=== PATIENT | female | born 1970 | race Caucasian/White ===

== ENCOUNTER 2018-05-25 18:05 | Emergency (ER) | payer OTHER ==
[2018-05-25] MEDS ORDERED: NICOTINE 21MG/24HR PATCH TRANSDERM STA (18:35)
[2018-05-25] MEDS ORDERED: clonazePAM 1 MG TAB PO STA (18:35)
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
[2018-05-25 18:55] LABS: Amphetamine Screen,Urine Not Detected (NotDetected); Barbiturate Screen,Urine Not Detected (NotDetected); Benzodiazepines Screen,Urine Not Detected (NotDetected); Cocaine Screen,Urine Not Detected (NotDetected); Methadone Screen, Urine Not Detected (NotDetected); Opiate Screen,Urine Not Detected (NotDetected); Oxycodone Screen, Urine Not Detected (NotDetected); Phencyclidine Screen,Urine Not Detected (NotDetected); Tricyclic Antidepressant,Urine Not Detected (NotDetected); Urn Cannabinoid Scrn Not Detected (NotDetected)
[2018-05-25] MEDS ORDERED: ZIPRASIDONE 20 MG VIAL IM STA (19:52)
[2018-05-25] MEDS ORDERED: LORazepam 2 MG/ML INJ IM STA (19:55)
[2018-05-26] MEDS ORDERED: LORazepam 1 MG TAB PO STA ×3 (03:37→14:55)
[2018-05-26 05:15] LABS: ALT 60 U/L (9-52); AST 43 U/L (14-36); Albumin 4.2 g/dL (3.5-5.0); Alcohol <10 mg/dL; Alkaline Phosphatase 55 U/L (38-126); Anion Gap 8 mmol/L; Blood Urea Nitrogen 11 mg/dL (7-17); Calcium 9.2 mg/dL (8.4-10.2); Carbon Dioxide 25 mmol/L (22-30); Chloride 106 mmol/L (98-107); Glucose 100 mg/dL (74-99); Sodium 139 mmol/L (137-145); Total Bilirubin 0.7 mg/dL (0.2-1.3); Total Protein 6.8 g/dL (6.3-8.2)
[2018-05-26 05:42] LABS: Basophils % (A) 0 %; Eosinophils # (A) 0.1 k/uL (0-0.7); Eosinophils % (A) 4 %; HCT 44.7 % (34.0-46.0); HGB 14.6 gm/dL (11.4-16.0); Lymphocytes % (A) 33 %; MCHC 32.7 g/dL (31.0-37.0); MCV 100.8 fL (80.0-100.0); Mean Platelet Volume 6.4; Monocytes # (A) 0.3 k/uL (0-1.0); Monocytes % (A) 9 %; Neutrophils # (A) 1.6 k/uL (1.3-7.7); Neutrophils % (A) 52 %; Platelet Count 231 k/uL (150-450); RBC 4.43 m/uL (3.80-5.40); RDW 12.6 % (11.5-15.5); WBC 3.2 k/uL (3.8-10.6)
[2018-05-26 08:53] LABS: Appearance,Urine Clear (Clear); Bilirubin,Urine Negative (Negative); Blood,Urine Negative (Negative); Color,Urine Light Yellow; Glucose,Urine (UA) Negative (Negative); Ketones,Urine Negative (Negative); Leukocyte Esterase,Urine Negative (Negative); Nitrite,Urine Negative (Negative); Protein,Urine Negative (Negative); Specific Gravity,Urine 1.003 (1.001-1.035); Urobilinogen,Urine <2.0 mg/dL (<2.0)
[2018-05-26 13:11] VITALS: TEMP 98.1
[2018-05-26 15:01] VITALS: BP 129/97; PULSE 74; RESP 16
--- NOTE | 2018-05-27 06:12 | CDI ---
Documentation Clarification OP Dear Daisy RODRIGUEZ, Please provide clinical impression Thank you, Vivek Sanchez [employer] If you have any questions, please contact [employer] at [phone] Clinical impression documented. MTDD
== END 2018-05-26 15:00 | disposition other institution (70) ==
LOC: EC 18:05
DX: R45.851 Suicidal ideations (principal); F32.9 Major depressive disorder, single episode, unspecified; F41.9 Anxiety disorder, unspecified; F17.200 Nicotine dependence, unspecified, uncomplicated; Z79.899 Other long term (current) drug therapy
CPT/HCPCS: 82075; 36415; 80053; 84443; 85025; 81003; 81025; 80306; 99285; 96372 ×2; G0480; S4990; J2060; J3486; 80320

== ENCOUNTER 2020-09-29 15:46 | Observation (INO) | payer OTHER ==
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
[2020-09-29 16:06] LABS: Basophils % (A) 0 %; Eosinophils # (A) 0.2 k/uL (0-0.7); Eosinophils % (A) 2 %; HCT 40.5 % (34.0-46.0); HGB 13.9 gm/dL (11.4-16.0); Lymphocytes # (A) 1.3 k/uL (1.0-4.8); Lymphocytes % (A) 12 %; MCHC 34.2 g/dL (31.0-37.0); MCV 93.6 fL (80.0-100.0); Mean Platelet Volume 6.7; Monocytes # (A) 0.4 k/uL (0-1.0); Monocytes % (A) 4 %; Neutrophils # (A) 8.6 k/uL (1.3-7.7); Neutrophils % (A) 81 %; Platelet Count 265 k/uL (150-450); RBC 4.33 m/uL (3.80-5.40); WBC 10.6 k/uL (3.8-10.6)
[2020-09-29 16:11] LABS: ABG Base Excess -9.2 mmol/L; ABG HCO3 17 mmol/L (21-25); ABG PCO2 32 mmHg (35-45); ABG PH 7.33 (7.35-7.45); ABG PO2 267 mmHg (83-108); ABG TCO2 18 mmol/L (19-24); Allen Test Performed? Yes
[2020-09-29 16:15] LABS: Partial Thromboplastin Time 22.8 sec (22.0-30.0); Prothrombin Time 10.3 sec (9.0-12.0)
[2020-09-29 16:21] LABS: Appearance,Urine Cloudy (Clear); Bacteria,Urine Rare /hpf; Bilirubin,Urine Negative (Negative); Blood,Urine Negative (Negative); Color,Urine Dark Yellow; Glucose,Urine (UA) 2+ (Negative); Hyaline Casts,Urine 37 /lpf (0-2); Ketones,Urine Trace (Negative); Leukocyte Esterase,Urine Negative (Negative); Mucus,Urine Many /hpf; Nitrite,Urine Negative (Negative); PH, Urine 5.5 (5.0-8.0); Protein,Urine 1+ (Negative); RBC,Urine <1 /hpf (0-5); Specific Gravity,Urine 1.029 (1.001-1.035); Squamous Epithelial Cell,Urine 6 /hpf (0-4); WBC,Urine 4 /hpf (0-5)
[2020-09-29 16:22] LABS: ALT 18 U/L (4-34); AST 24 U/L (14-36); African American GFR (CKD) >90 (>60 ml/min/1.73 sqM); Albumin 4.5 g/dL (3.5-5.0); Alkaline Phosphatase 64 U/L (38-126); Anion Gap 16 mmol/L; Blood Urea Nitrogen 9 mg/dL (7-17); Calcium 9.2 mg/dL (8.4-10.2); Carbon Dioxide 15 mmol/L (22-30); Chloride 108 mmol/L (98-107); Glucose 232 mg/dL (74-99); Non-African American GFR(CKD) >90 (>60 ml/min/1.73 sqM); Potassium 3.3 mmol/L (3.5-5.1); Sodium 139 mmol/L (137-145); Total Bilirubin 0.3 mg/dL (0.2-1.3); Total Protein 6.8 g/dL (6.3-8.2)
[2020-09-29 16:27] LABS: Alcohol 107 mg/dL
[2020-09-29 16:29] LABS: Amphetamine Screen,Urine Detected (NotDetected); Barbiturate Screen,Urine Not Detected (NotDetected); Benzodiazepines Screen,Urine Detected (NotDetected); Cocaine Screen,Urine Not Detected (NotDetected); Methadone Screen, Urine Not Detected (NotDetected); Opiate Screen,Urine Not Detected (NotDetected); Oxycodone Screen, Urine Not Detected (NotDetected); Phencyclidine Screen,Urine Not Detected (NotDetected); Tricyclic Antidepressant,Urine Detected (NotDetected); Urn Cannabinoid Scrn Not Detected (NotDetected)
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
[2020-09-29] MEDS ORDERED: NALOXONE 0.4 MG/ML 1 ML VIAL IV PRN (19:26)
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
[2020-09-30 02:28] LABS: Glucose,Whole Blood 106 mg/dL (75-99)
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
[2020-09-30] MEDS: HEPARIN SODIUM,PORCINE/PF 5,000 UNIT/0.5 ML SYRINGE SQ SCH ×2 (08:57→16:36)
[2020-09-30] MEDS: cloNIDine HCL 0.1 MG TAB PO SCH ×2 (08:58→21:15)
[2020-09-30] MEDS: ALPRAZolam 0.25 MG TAB PO PRN ×2 (08:58→17:34)
[2020-09-30] MEDS: QUEtiapine 100 MG TAB PO SCH (08:58)
[2020-09-30] MEDS ORDERED: LEVOTHYROXINE 50 MCG TAB PO SCH (09:00)
[2020-09-30] MEDS ORDERED: FAMOTIDINE 20 MG/2 ML VIAL IV SCH (09:00)
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
[2020-09-30] MEDS ORDERED: NICOTINE 14MG/24HR PATCH TRANSDERM STA (14:25)
[2020-09-30] MEDS ORDERED: ACETAMINOPHEN TAB 500 MG TAB PO PRN (14:54)
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
[2020-09-30] MEDS: ALBUTEROL HFA INHALER INHALATION SCH (20:46)
[2020-09-30 21:12] LABS: Glucose,Whole Blood 147 mg/dL (75-99)
[2020-09-30] MEDS: FAMOTIDINE 20 MG TAB PO SCH (21:15)
[2020-10-01] MEDS: HEPARIN SODIUM,PORCINE/PF 5,000 UNIT/0.5 ML SYRINGE SQ SCH ×3 (00:07→15:55)
[2020-10-01] MEDS: ALPRAZolam 0.25 MG TAB PO PRN ×3 (02:34→19:33)
[2020-10-01 06:39] LABS: Basophils % (A) 0 %; Eosinophils # (A) 0.3 k/uL (0-0.7); Eosinophils % (A) 5 %; HCT 39.7 % (34.0-46.0); HGB 13.3 gm/dL (11.4-16.0); Lymphocytes # (A) 1.8 k/uL (1.0-4.8); Lymphocytes % (A) 33 %; MCH 31.5 pg (25.0-35.0); MCHC 33.5 g/dL (31.0-37.0); Mean Platelet Volume 6.8; Monocytes # (A) 0.3 k/uL (0-1.0); Monocytes % (A) 5 %; Neutrophils % (A) 56 %; Platelet Count 255 k/uL (150-450); RBC 4.23 m/uL (3.80-5.40); WBC 5.4 k/uL (3.8-10.6)
[2020-10-01] MEDS: ALBUTEROL HFA INHALER INHALATION SCH ×3 (07:55→20:39)
[2020-10-01] MEDS: cloNIDine HCL 0.1 MG TAB PO SCH ×2 (08:12→21:30)
[2020-10-01] MEDS: QUEtiapine 100 MG TAB PO SCH (08:12)
[2020-10-01] MEDS: PANTOPRAZOLE 40 MG TABLET PO SCH (08:12)
[2020-10-01] MEDS: FAMOTIDINE 20 MG TAB PO SCH ×2 (08:12→21:30)
[2020-10-01] MEDS: SERTRALINE 100 MG TAB PO SCH (08:12)
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
[2020-10-01 08:52] LABS: African American GFR (CKD) 99.6 (60.0-200.0); BUN/Creat Ratio 18.75 Ratio (12.00-20.00); Calcium 9.1 mg/dL (8.7-10.3); Potassium 4.2 mmol/L (3.5-5.5)
[2020-10-01] MEDS: LEVOTHYROXINE 50 MCG TAB PO SCH (10:41)
[2020-10-01] MEDS: NICOTINE 14MG/24HR PATCH TRANSDERM SCH (10:41)
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
[2020-10-01] MEDS: QUEtiapine 50 MG TAB PO SCH (21:30)
[2020-10-02] MEDS: HEPARIN SODIUM,PORCINE/PF 5,000 UNIT/0.5 ML SYRINGE SQ SCH ×3 (00:04→15:57)
[2020-10-02] MEDS: LEVOTHYROXINE 50 MCG TAB PO SCH (05:21)
[2020-10-02] MEDS: ALPRAZolam 0.25 MG TAB PO PRN ×3 (05:24→22:09)
[2020-10-02] MEDS: ALBUTEROL HFA INHALER INHALATION SCH ×3 (07:19→20:17)
[2020-10-02] MEDS: PANTOPRAZOLE 40 MG TABLET PO SCH (07:26)
[2020-10-02] MEDS: SERTRALINE 100 MG TAB PO SCH (07:26)
[2020-10-02] MEDS: QUEtiapine 100 MG TAB PO SCH (07:27)
[2020-10-02] MEDS: NICOTINE 14MG/24HR PATCH TRANSDERM SCH (07:27)
[2020-10-02] MEDS: FAMOTIDINE 20 MG TAB PO SCH ×2 (07:27→19:46)
[2020-10-02] MEDS: cloNIDine HCL 0.1 MG TAB PO SCH ×2 (07:28→19:46)
[2020-10-02] MEDS: DOCUSATE 100 MG CAP PO SCH (11:07)
[2020-10-02 14:41] LABS: Hemoglobin A1C 5.7 % (4.0-6.0)
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
[2020-10-02] MEDS ORDERED: LACTULOSE 20 GM/30 ML CUP PO ONE (17:15)
[2020-10-02] MEDS ORDERED: MAGNESIUM HYDROXIDE 2,400 MG/10 ML CUP PO ONE (17:15)
[2020-10-02] MEDS: QUEtiapine 50 MG TAB PO SCH (19:46)
[2020-10-02] MEDS ORDERED: polyethylene glycoL 3350 17 GM POWD.PACK PO SCH (21:00)
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
[2020-10-03] MEDS: LEVOTHYROXINE 50 MCG TAB PO SCH (05:18)
[2020-10-03] MEDS: ALBUTEROL HFA INHALER INHALATION SCH ×2 (07:15→11:33)
[2020-10-03] MEDS: cloNIDine HCL 0.1 MG TAB PO SCH (08:30)
[2020-10-03] MEDS: PANTOPRAZOLE 40 MG TABLET PO SCH (08:30)
[2020-10-03] MEDS: SERTRALINE 100 MG TAB PO SCH (08:30)
[2020-10-03] MEDS: HEPARIN SODIUM,PORCINE/PF 5,000 UNIT/0.5 ML SYRINGE SQ SCH ×2 (08:30)
[2020-10-03] MEDS: DOCUSATE 100 MG CAP PO SCH (08:30)
[2020-10-03] MEDS: FAMOTIDINE 20 MG TAB PO SCH (08:30)
[2020-10-03] MEDS: NICOTINE 14MG/24HR PATCH TRANSDERM SCH (08:30)
[2020-10-03] MEDS: QUEtiapine 100 MG TAB PO SCH (08:31)
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
[2020-10-03 11:41] VITALS: BP 110/74; PULSE 60; RESP 12; TEMP 98.5
[2020-10-03] MEDS: ALPRAZolam 0.25 MG TAB PO PRN (13:24)
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
== END 2020-10-03 13:49 ==
LOC: EC 15:46 → INTOOBSV 19:28 → 2SICU 19:28 → 5NMEDONC 09-30 10:18 → UNDODISIN 10-03 13:49
PROVIDERS: ADMIT Surgery; ATTEND Surgery
DX: T58.8X1A Toxic effect of carbon monoxide from other source, accidental (unintentional), initial encounter (principal); J96.01 Acute respiratory failure with hypoxia; G93.41 Metabolic encephalopathy; E87.2 Acidosis; R45.851 Suicidal ideations; E03.9 Hypothyroidism, unspecified; E78.5 Hyperlipidemia, unspecified; E87.6 Hypokalemia; F15.10 Other stimulant abuse, uncomplicated; F10.129 Alcohol abuse with intoxication, unspecified; Y90.5 Blood alcohol level of 100-119 mg/100 ml; F13.10 Sedative, hypnotic or anxiolytic abuse, uncomplicated; F43.25 Adjustment disorder with mixed disturbance of emotions and conduct; F41.9 Anxiety disorder, unspecified; F32.9 Major depressive disorder, single episode, unspecified; I10 Essential (primary) hypertension; K59.00 Constipation, unspecified; T59.811A Toxic effect of smoke, accidental (unintentional), initial encounter; J70.5 Respiratory conditions due to smoke inhalation; X00.0XXA Exposure to flames in uncontrolled fire in building or structure, initial encounter; Z79.890 Hormone replacement therapy; Z79.899 Other long term (current) drug therapy; Z87.891 Personal history of nicotine dependence; Z65.3 Problems related to other legal circumstances
CPT/HCPCS: 99291; 96372 ×3; 96374; 96375; 36415; 94640 ×6; 94760; 93005; 86900; 86901; 80053; 80048; 84443; 82375; 82805; 84484; 85025 ×2; 85610; 85730; 86850; 81001; 80306; 83036; 72170; 71045 ×3; 71046; G0378 ×7; G0480; S4990 ×4; J1644 ×4; 80320; 99285